=== PATIENT | male | born 1980 | race Caucasian/White ===

== ENCOUNTER 2018-06-24 23:12 | Emergency (ER) | payer OTHER ==
--- NOTE | 2018-06-24 23:31 | EDPHY ---
H & P Stated Complaint: NEEDLE POKE TO RIGHT INDEX FINGER, AT 2200, WASHED AFTERWARDS Source: Patient Exam Limitations: No limitations - Personal History Current Tetanus/Diphtheria Vaccine: Yes - Medical/Surgical History Hx Asthma: No Hx Chronic Respiratory Disease: No Hx Diabetes: No Hx Cardiac Disease: No Hx Renal Disease: No Hx Cirrhosis: No Hx Alcoholism: No Hx HIV/AIDS: No Hx Splenectomy or Spleen Trauma: No Other PMH: DENIES - Social History Smoking Status: Never smoked Time Seen by Provider: 06/24/18 23:25 HPI/ROS: HPI: This is a 37-year-old male who presents with Chief Complaint: NEEDLE POKE TO RIGHT INDEX FINGER, AT 2200, WASHED AFTERWARDS Location: Right index finger Quality: Needlestick Duration: Prior to arrival Signs and Symptoms: No bleeding, no radiation, no numbness, no weakness, no tingling, no incontinence, no decreased range of motion, no swelling, no pain, no fever Timing: Acute Severity: Moderate Context: Patient is right-hand dominant, works for the [employer], presents with complaints of an accidental needle stick to his right index finger prior to arrival. 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 There is no information available on the medical history of the inmate or who he tattooed. Reports tetanus is current. Wash thoroughly after needle stick. Denies paresthesias, radiation, weakness. Modifying Factors: Local wound care Comment: ROS: A comprehensive 10 system review of systems is otherwise negative aside from elements mentioned in the history of present illness. MEDICAL/SURGICAL/SOCIAL HISTORY: Medical history: Generally healthy. Does not take any regular medications. Surgical history: Denies Social history: Nonsmoker. Employed. Denies drug use. CONSTITUTIONAL: awake and alert, no obvious distress HEENT: Atraumatic and normocephalic. NECK: supple EXTREMITIES: 2/2 pulses, strength 5/5, right index finger shows pinpoint needlestick on the pad-no active bleeding. DIP/PIP/MCP flexion/extension intact with good light touch sensation. no deformities, no clubbing, no cyanosis or edema. NEUROLOGICAL: no focal neuro deficits. GCS 15. Light touch sensation intact. SKIN: Warm and dry, no erythema. no rash. Good capillary refill. (Alpha,Terra) Constitutional: Initial Vital Signs Temperature (C) 36.6 C 06/24/18 23:18 Heart Rate 65 06/24/18 23:18 Respiratory Rate 18 06/24/18 23:18 Blood Pressure 138/56 H 06/24/18 23:18 O2 Sat (%) 94 06/24/18 23:18 O2 Delivery Mode Room Air Allergies/Adverse Reactions: No Known Allergies Allergy (Unverified 06/24/18 23:18) Home Medications: Medication Instructions Recorded Emtricitabine/Tenofovir [Truvada 1 tab PO DAILY 30 Days tab 06/24/18 200MG/300MG (*)] Raltegravir [Isentress] 400 mg PO BID 30 Days tab 06/24/18 Ondansetron Odt [Zofran Odt 4 mg 4 mg PO Q4 PRN #12 tab 06/25/18 (*)] Medical Decision Making ED Course/Re-evaluation: PHYSICIAN DOCUMENTATION: The patient was evaluated and managed by the Physician Product Introduction Manager. My co- signature indicates that I have reviewed this chart and I agree with the findings and plan of care as documented. I am the secondary supervising physician. (Malina Schafer) Vital signs reviewed and stable upon arrival. Laboratory studies drawn of HIV 1 into, HCV antibody and hepatitis-B surface antigen Unable to test inmates and high risk exposure, decision made to prophylactically treat with Truvada and Isentress No signs of neurovascular compromise/tenting of skin/compartment syndrome/ extremities and joints examined above and below area of concern and are neurovascularly intact. This patient was seen under the supervision of my secondary supervising physician. I evaluated care for this patient independently. Discussed this patient with Dr. Schafer who did not see the patient. (Yaneth Nunn) Differential Diagnosis: Differential diagnosis includes blood borne pathogen exposure. (Yaneth Nunn) - Data Points Medications Given: Emtricitabine/Tenofovir (Truvada) 1 tab PO ONCE ONE Stop: 06/25/18 23:55 Last Admin: 06/25/18 00:16 Dose: 1 tab Discontinued Medications Ondansetron HCl (Zofran Odt) 4 mg PO EDNOW ONE Stop: 06/24/18 23:55 Last Admin: 06/25/18 00:16 Dose: 4 mg Raltegravir (Isentress) 400 mg PO EDNOW ONE Stop: 06/24/18 23:55 Last Admin: 06/25/18 00:16 Dose: 400 mg Departure - Departure Disposition: Home, Routine, Self-Care Clinical Impression: Needle exposure Qualifiers: Encounter type: initial encounter Qualified Code(s): X58.XXXA - Exposure to other specified factors, initial encounter Condition: Good Instructions: Ondansetron (By mouth), Needle Stick Injuries (ED) Additional Instructions: The emergency room staff will contact you with the results of your tests. Please follow-up with the [facility] in the next 5-7 days. Take all medications as prescribed. Take Zofran every 4-6 hours as needed for nausea, vomiting. Follow-Up: Please follow-up as noted above. Follow up sooner if your condition worsens or if you develop any new problems Call as soon as possible for an appointment. Be clear when you call for an appointment that this is an Emergency Department follow-up. Contact the Emergency Department if you are having trouble arranging follow up care. Our referrals are not based on your insurance network. When time allows, contact your insurance carrier to verify the referral physician is in your plan. If not, get a referral for an in-video network engineer. Please ask us if you have any questions. Referrals: Sumit James MD [Medical Doctor] - As per Instructions Prescriptions: Emtricitabine/Tenofovir [Truvada 200MG/300MG (*)] 1 tab PO DAILY 30 Days tab Ondansetron Odt [Zofran Odt 4 mg (*)] 4 mg PO Q4 PRN #12 tab PRN Reason: Nausea/Vomiting, Use 1st Raltegravir [Isentress] 400 mg PO BID 30 Days tab
[2018-06-24] MEDS ORDERED: RALTEGRAVIR 400 MG TAB PO ONE (23:54)
[2018-06-24] MEDS ORDERED: ONDANSETRON DISINTEGRATING 4 MG TAB PO ONE (23:54)
[2018-06-25] MEDS ORDERED: EMTRICITABINE/TENOFOVIR 200MG/300MG TAB PO ONE ×2 (00:12→23:54)
[2018-06-25] MEDS ORDERED: ONDANSETRON 4MG PREPACK#2 BTL TAKEHOME ONE (00:25)
[2018-06-25 00:51] VITALS: BP 134/64
[2018-06-26 03:06] LABS: HEPATITIS B SURFACE ANTIGEN NEGATIVE (NEGATIVE); HEPATITIS C ANTIBODY TOTAL NEGATIVE (NEGATIVE); HIV TYPE 1 AND 2 NEGATIVE (NEGATIVE)
== END 2018-06-25 00:49 | disposition home or self-care (01) ==
DX: S61.230A Puncture wound without foreign body of right index finger without damage to nail, initial encounter (principal); W46.1XXA Contact with contaminated hypodermic needle, initial encounter; Y92.9 Unspecified place or not applicable; Y93.9 Activity, unspecified; Y99.0 Civilian activity done for income or pay
CPT/HCPCS: G0472